=== PATIENT | male | born 1995 | race African-American/Black ===

== ENCOUNTER 2016-12-19 21:46 | Emergency (ER) | payer MEDICAID ==
[~2016-12-19] VITALS: Ht 185.4 cm; Wt 81.2 kg
[2016-12-19 22:04] VITALS: BP 140/90
[2016-12-19] MEDS ORDERED: Norco 10mg/325mg tab ORAL ONE (22:15)
[2016-12-19] MEDS ORDERED: IBUPROFEN600 MG ORAL (22:42)
[2016-12-19] MEDS ORDERED: ACETAMINOPHEN-1 EAC1 ORAL (22:42)
[2016-12-19 22:57] VITALS: BP 140/90
--- NOTE | 2016-12-19 23:44 | Emergency Room Report ---
History of Present Illness General Chief Complaint: Shoulder Injury Source: Patient Present Illness HPI Patient presents with complaints of right shoulder pain and what he feels is likely dislocation Patient has had dislocation on 2 previous occasions This evening he was playing basketball just prior to arrival When he was hit on the shoulder in a downward motion And he felt the shoulder pop out Pain is 5/10 worse with touch or manipulation Patient feels better while holding the shoulder up Denies any head injury denies any neck pain denies any neuropathy Allergies: Coded Allergies: No Known Allergies (Unverified , 12/19/16) Patient History Past Medical History: see triage record Pertinent Family History: none Reviewed Nursing Documentation: PMH: Agreed, PSxH: Agreed Nursing Documentation-PMH Past Medical History: No Stated History Review of Systems All Other Systems: negative except mentioned in HPI Physical Exam Vital Signs Date Time Temp Pulse Resp B/P Pulse Ox O2 Delivery O2 Flow Rate FiO2 12/19/16 21:39 98.2 96 16 140/90 99 Sp02 EP Interpretation: reviewed, normal General Appearance: mild distress - In acute pain Head: normocephalic, atraumatic Eyes: bilateral eye EOMI, bilateral eye PERRL ENT: normal pharynx Neck: full range of motion, supple, thyroid normal Respiratory: lungs clear Cardiovascular #1: regular rate, rhythm, no edema Gastrointestinal: non tender, soft Musculoskeletal: other - Patient has right arm at 90 abduction, neurovascularly intact pain worsens with adduction Neurologic: alert, oriented x3, responsive, ship wirer III-XII nml as tested, sensory intact Skin: no rash, warm/dry Lymphatic: no adenopathy Procedures Splinting Splinting : Consent: Verbal Location: right shoulder Pre-Made Type: shoulder immobilizer Pre-Proc Neuro Vasc Exam: normal Post-Proc Neuro Vasc Exam: normal Patient Tolerated: Well Complications: None Joint Reduction Progress Patient had the right arm in 90, patient had mild traction applied, while I was outside the room during traction the shoulder did reduce on its own. On reevaluation patient had good mobility and remaining neurovascularly intact, , Medical Decision Making Diagnostic Impression: Primary Impression: shoulder dislocation ER Course Patient presents with shoulder dislocation Production as noted above Patient remains intact neurovascularly Imaging study confirmed reduction Condition stable for close outpatient follow Other X-Ray Diagnostic Results Other X-Ray Diagnostic Results #1: EP Interpretation: Yes Findings: no fractures, no soft tissue swelling, other - shoulder dislocation Number of Views: 1 - right shoulder Other X-Ray Diagnostic Results #2: EP Interpretation: Yes Findings: no fractures, no dislocation, no soft tissue swelling, other - s/ p reduction Number of Views: 2 - right shoulder Last Vital Signs Date Time Temp Pulse Resp B/P Pulse Ox O2 Delivery O2 Flow Rate FiO2 12/19/16 22:57 98.2 16 140/90 99 12/19/16 22:04 89 Status: improved Disposition: HOME, SELF-CARE Condition: Improved Scripts Acetaminophen With Codeine (T#3) (TYLENOL #3 TAB*) Y Tab 1 TAB ORAL Q8H Y for For Pain, #10 TAB Prov: ZANA SLATER D.O. 12/19/16 Ibuprofen* (MOTRIN*) 600 Mg Tablet 600 MG ORAL Q8H Y for For Pain, #20 TAB 0 Refills Prov: ZANA SLATER D.O. 12/19/16 Patient Instructions: Shoulder Dislocation Additional Instructions: Patient is provided with the discharge instructions notified to follow up with primary doctor in the next 2-3 days otherwise return to the er with any worsening symptoms. Please note that this report is being documented using [facility] technology. This can lead to erroneous entry secondary to incorrect interpretation by the dictating instrument. ZANA SLATER D.O. Dec 19, 2016 23:44
--- NOTE | 2016-12-20 09:24 | Diagnostic Imaging Report ---
Indication: Pain Findings: 3 views of the right shoulder were obtained. No acute fractures, malalignment, erosions or periostitis are identified. Bone mineralization is within normal limits. Soft tissues are unremarkable. Impression: Negative examination of the shoulder.
--- NOTE | 2016-12-20 09:34 | Diagnostic Imaging Report ---
Indication: Pain Findings: Single view of the right shoulder was obtained. Unorthodox AP view of the right shoulder obtained. There is inferior subluxation of the humeral head appears to abut the inferior glenoid. Not certain if this is an anterior or posterior dislocation based on this single view. At the time of this dictation a subsequent x-ray of the right shoulder was obtained and shows normal alignment of the glenohumeral joint without evidence of a fracture. Impression: Suboptimal evaluation showing dislocation of the glenohumeral joint. This was subsequently reduced.
== END 2016-12-19 22:57 | disposition home or self-care (01) ==
LOC: EDBD 21:46 → EMR 22:00
DX: S43.034A Inferior dislocation of right humerus, initial encounter (principal); Y93.67 Activity, basketball; Y92.89 Other specified places as the place of occurrence of the external cause
CPT/HCPCS: 29240; 73020; 99284; Z7502